=== PATIENT | male | born 1940 | race Caucasian/White ===

== ENCOUNTER 2017-02-27 07:15 | Emergency (ER) | payer MEDICARE, BC ==
[~2017-02-27] VITALS: Ht 177.8 cm; Wt 98.0 kg
[2017-02-27 07:27] VITALS: BP 121/77; PULSE 67; RESP 18; TEMP 98.4; O2SAT 98
[2017-02-27] MEDS ORDERED: ONDANSETRON HCL 4 MG/2 ML VIAL IV PUSH ONE (07:45)
[2017-02-27] MEDS ORDERED: SODIUM CHLORID 0.9% 500 ML INJ 500 ML IV ONE (07:45)
--- NOTE | 2017-02-27 08:02 | PD ---
HPI Chief Complaint: Dizziness Time Seen by Provider: 07:30 Travel History International Travel<30 days: No Contact w/Intl Traveler<30days: No Traveled to known affect area: No History of Present Illness HPI 76-year-old male presents with dizziness and nausea since this morning. He states it's mainly when he moves. He denies any currently. He states it feels like spinning. He denies prior history of this. He states that he has no other concurrent complaints including pain, numbness, weakness or other acute concerns. Severity is resolved. Quality was spinning. He denies other modifying factors. PFSH Past Medical History Hx Anticoagulant Therapy: No Cardiovascular Problems: Yes (HTN ) Diabetes: No Diminished Hearing: No Hiatal Hernia: Yes Hypertension: Yes Tetanus Vaccination: < 5 Years Influenza Vaccination: No Past Surgical History Abdominal Surgery: Yes (HERNIA SURGERY ) Cholecystectomy: Yes Tonsillectomy: Yes Social History Alcohol Use: No Tobacco Use: No Substance Use: No Allergies-Medications (Allergen,Severity, Reaction): Coded Allergies: No Known Allergies (Unverified , 02/27/17) Reported Meds & Prescriptions Reported Meds & Active Scripts Active Reported Clonidine (Clonidine HCl) 0.1 Mg Tab 0.1 Mg PO BID Review of Systems Except as stated in HPI: all other systems reviewed are Neg Physical Exam Narrative GENERAL: Well-nourished, well-developed patient. Well-appearing SKIN: Warm and dry. HEAD: Normocephalic and atraumatic. EYES: No injection or drainage. ENT: No nasal drainage noted. NECK: Supple, trachea midline. CARDIOVASCULAR: Regular rate and rhythm RESPIRATORY: Breath sounds equal bilaterally. No accessory muscle use. GASTROINTESTINAL: Abdomen soft, non-tender, nondistended. EXTREMITIES: No edema. NEUROLOGICAL: Awake and alert. Motor and sensory grossly within normal limits. Normal speech. Equal grasp bilaterally, 5 out of 5 in all 4 extremities Data Data Last Documented VS Vital Signs Date Time Temp Pulse Resp B/P (MAP) Pulse Ox O2 Delivery O2 Flow Rate FiO2 02/27/17 09:23 57 16 128/78 (95) 99 02/27/17 07:34 Room Air 02/27/17 07:27 98.4 Orders Orders Magnesium (Mg) (02/27/17 07:42) Phosphorus (Po4) (02/27/17 07:42) Complete Blood Count With Diff (02/27/17 07:42) Basic Metabolic Panel (Bmp) (02/27/17 07:42) Urinalysis - C+S If Indicated (02/27/17 07:42) Act Partial Throm Time (Ptt) (02/27/17 07:42) Prothrombin Time / Inr (Pt) (02/27/17 07:42) Ct Brain W/O Iv Contrast(Rout) (02/27/17 ) Electrocardiogram (02/27/17 ) Iv Access Insert/Monitor (02/27/17 07:42) Ecg Monitoring (02/27/17 07:42) Oximetry (02/27/17 07:42) Sodium Chlorid 0.9% 500 Ml Inj (Ns 500 M (02/27/17 07:45) Ondansetron Inj (Zofran Inj) (02/27/17 07:45) Ed Discharge Order (02/27/17 11:43) Labs Laboratory Tests Test 02/27/17 07:30 02/27/17 10:50 White Blood Count 5.3 TH/MM3 Red Blood Count 4.94 MIL/MM3 Hemoglobin 14.9 GM/DL Hematocrit 43.8 % Mean Corpuscular Volume 88.7 FL Mean Corpuscular Hemoglobin 30.1 PG Mean Corpuscular Hemoglobin Concent 34.0 % Red Cell Distribution Width 13.9 % Platelet Count 215 TH/MM3 Mean Platelet Volume 7.7 FL Neutrophils (%) (Auto) 70.1 % Lymphocytes (%) (Auto) 17.0 % Monocytes (%) (Auto) 9.8 % Eosinophils (%) (Auto) 1.6 % Basophils (%) (Auto) 1.5 % Neutrophils # (Auto) 3.7 TH/MM3 Lymphocytes # (Auto) 0.9 TH/MM3 Monocytes # (Auto) 0.5 TH/MM3 Eosinophils # (Auto) 0.1 TH/MM3 Basophils # (Auto) 0.1 TH/MM3 CBC Comment DIFF FINAL Differential Comment Prothrombin Time 10.0 SEC Prothromb Time International Ratio 1.0 RATIO Activated Partial Thromboplast Time 24.5 SEC Blood Urea Nitrogen 10 MG/DL Creatinine 1.06 MG/DL Random Glucose 125 MG/DL Calcium Level 9.2 MG/DL Phosphorus Level 2.7 MG/DL Magnesium Level 2.0 MG/DL Sodium Level 138 MEQ/L Potassium Level 4.2 MEQ/L Chloride Level 104 MEQ/L Carbon Dioxide Level 27.7 MEQ/L Anion Gap 6 MEQ/L Estimat Glomerular Filtration Rate 68 ML/MIN Urine Color LIGHT-YELLOW Urine Turbidity CLEAR Urine pH 7.5 Urine Specific [place] 1.005 Urine Protein NEG mg/dL Urine Glucose (UA) NEG mg/dL Urine Ketones NEG mg/dL Urine Occult Blood NEG Urine Nitrite NEG Urine Bilirubin NEG Urine Urobilinogen LESS THAN 2.0 MG/DL Urine Leukocyte Esterase NEG Urine WBC LESS THAN 1 /hpf Microscopic Urinalysis Comment CULT NOT INDICATED MDM Medical Decision Making Medical Screen Exam Complete: Yes Emergency Medical Condition: Yes Medical Record Reviewed: Yes (past history confirmed) Interpretation(s) EKG shows NSR, no ST elevation or depression, and no arrhythmias. CBC & BMP Diagram 02/27/17 07:30 Calcium Level 9.2, Phosphorus Level 2.7, Magnesium Level 2.0 Last [address] 02/27/17 0000 Signed Impressions: Service Date/Time: Monday, February 27, 2017 09:01 - CONCLUSION: Negative exam. Solo Mehta MD Differential Diagnosis Vertigo, anemia, renal failure, intracranial Narrative Course Will check blood work, CT brain and dose with IV fluids and Zofran and reevaluate ed workup no emergent process, no return of symptoms here, Patient denies any new complaints and states that they are feeling better. Patient happy with care , all questions answered. Patient knows that follow up is incumbent on them and to return to the emergency room immediately if new or worsening symptoms develop. Patient given strict return precautions, vitals reviewed and are normal , agrees to further workup as an outpatient. Diagnosis Primary Impression: Dizziness Patient Instructions: General Instructions Additional Instructions: return as needed, follow with primary tommorrow Med/Other Pt SpecificInfo: No Change to Meds Disposition: 01 DISCHARGE HOME Condition: Stable Jennifer Elmore MD Feb 27, 2017 08:02
[2017-02-27 08:03] LABS: AUTOMATED NEUTROPHIL # 3.7 TH/MM3 (1.8-7.7); BASOPHIL # 0.1 TH/MM3 (0-0.2); BASOPHIL % 1.5 % (0.0-2.0); EOSINOPHIL # 0.1 TH/MM3 (0-0.4); EOSINOPHIL % 1.6 % (0.0-4.0); HEMATOCRIT 43.8 % (39.0-51.0); HEMO FLAGS DIFF FINAL; LYMPHOCYTE # 0.9 TH/MM3 (1.0-4.8); MEAN CELL VOLUME 88.7 FL (80.0-100.0); MEAN CORPUSCULAR HEMOGLOBIN 30.1 PG (27.0-34.0); MONO % 9.8 % (0.0-8.0); NEUT % 70.1 % (16.0-70.0); PLATELET COUNT 215 TH/MM3 (150-450); RED BLOOD COUNT 4.94 MIL/MM3 (4.50-5.90); RED CELL DISTRIBUTION WIDTH 13.9 % (11.6-17.2); WHITE BLOOD COUNT 5.3 TH/MM3 (4.0-11.0)
[2017-02-27 08:15] LABS: APTT (PATIENT) 24.5 SEC (24.3-30.1)
[2017-02-27 08:20] LABS: BICARBONATE 27.7 MEQ/L (21.0-32.0); POTASSIUM 4.2 MEQ/L (3.5-5.1)
[2017-02-27 09:23] VITALS: BP 128/78; PULSE 57; RESP 16; O2SAT 99
[2017-02-27] MEDS ORDERED: CLON0.1T PO (09:32)
--- NOTE | 2017-02-27 10:18 | RADRPT ---
EXAM DATE/TIME: 02/27/2017 09:01 [facility] COMPARISON: No previous studies available for comparison. INDICATIONS : Dizziness RADIATION DOSE: 56.35 CTDIvol (mGy) MEDICAL HISTORY : Hypertension. SURGICAL HISTORY : Cholecystectomy. ENCOUNTER: Initial ACUITY: 1 day PAIN SCALE: 0/10 LOCATION: cranial TECHNIQUE: Multiple contiguous axial images were obtained of the head. Using automated exposure control and adj ustment of the mA and/or kV according to patient size, radiation dose was kept as low as reasonably a chievable to obtain optimal diagnostic quality images. DICOM format image data is available electro nically for review and comparison. FINDINGS: CEREBRUM: The ventricles are normal for age. No evidence of midline shift, mass lesion, hemorrhage or acute in farction. No extra-axial fluid collections are seen. POSTERIOR FOSSA: The cerebellum and brainstem are intact. The 4th ventricle is midline. The cerebellopontine angle i s unremarkable. EXTRACRANIAL: The visualized portion of the orbits is intact. SKULL: The calvaria is intact. No evidence of skull fracture. CONCLUSION: Negative exam. Solo Mehta MD on February 27, 2017 at 10:13 Board Certified Radiologist. This report was verified electronically.
[2017-02-27 11:32] LABS: BLOOD, URINE NEG (NEG); GLUCOSE,URINE NEG (NEG); KETONE, URINE NEG (NEG); NITRITE,URINE NEG (NEG); PH, URINE 7.5 (5.0-8.5); URINE COLOR LIGHT-YELLOW (YELLW/STRAW)
[2017-02-27 11:34] LABS: COMMENT (UR) CULT NOT INDICATED; CULTURE IF INDICATED CULT NOT INDICATED
[2017-02-27 12:28] VITALS: BP 124/71; PULSE 60; RESP 16; O2SAT 99
--- NOTE | 2017-02-28 10:32 | EKG ---
Date Performed: 02/27/2017 Time Performed: 07:39:10 PTAGE: 76 years EKG: Sinus rhythm NORMAL ECG NO PREVIOUS TRACING DOCTOR: Rita Sanderson Interpretating Date/Time 02/28/2017 10:32:11
== END 2017-02-27 12:35 | disposition home or self-care (01) ==
LOC: NEPC 07:15
DX: R42 Dizziness and giddiness (principal); R11.0 Nausea; I10 Essential (primary) hypertension; Z79.899 Other long term (current) drug therapy
CPT/HCPCS: 70450; 80048; 81001; 83735; 84100; 85025; 85610; 85730; 93005; 96361; 96374; 99285; J2405; J7040